=== PATIENT | male | born 1990 | race Caucasian/White ===

== ENCOUNTER → 2022-08-04 | Outpatient (REF) | payer OTHER ==
[2022-08-04 12:43] LABS: SEMEN APPEARANCE OPAQUE (OPAQUE); SEMEN VISCOSITY LIQUID (LIQUID); SEMEN pH 8.5 (7.0-8.0); WBC CONCENTRATION >1 M/ml (<=1 M/ml)
[2022-08-04 12:44] LABS: SPERM CONCENTRATION 4.7 M/ml (>=15.0)
== END ==
LOC: M SMT 12:23
PROVIDERS: ATTEND Physician Assistant
DX: N46.9 Male infertility, unspecified (principal); N32.81 Overactive bladder; N52.9 Male erectile dysfunction, unspecified; F17.290 Nicotine dependence, other tobacco product, uncomplicated
CPT/HCPCS: 51798; 89320; G0463

== ENCOUNTER 2022-09-25 12:22 | Emergency (ER) | payer OTHER ==
[~2022-09-25] VITALS: Ht 172.7 cm; Wt 94.7 kg
[2022-09-25] MEDS ORDERED: LIDOCAINE 5% (LIDODERM) PATCH TD ONE (13:05)
[2022-09-25] MEDS ORDERED: diazePAM 5MG TABLET PO ONE (13:05)
[2022-09-25] MEDS ORDERED: KETOROLAC 30 MG/ML 1ML VIAL IM ONE (13:05)
[2022-09-25] MEDS ORDERED: UNRESOLVED CLARIFICATION ENTRY XX STA (13:18)
[2022-09-25 13:22] VITALS: BP 133/82
[2022-09-25] MEDS ORDERED: CYCL-707 PO (15:39)
[2022-09-25] MEDS ORDERED: KETO10TAB PO (15:39)
[2022-09-25] MEDS ORDERED: LIDO5DIS41 TD (15:39)
== END 2022-09-25 15:47 | disposition home or self-care (01) ==
LOC: M ED 12:22
DX: S39.012A Strain of muscle, fascia and tendon of lower back, initial encounter (principal); F17.200 Nicotine dependence, unspecified, uncomplicated; Z79.899 Other long term (current) drug therapy
CPT/HCPCS: 72148; 96372; 99283; J1885

== ENCOUNTER 2023-05-07 13:10 | Emergency (ER) | payer OTHER ==
[~2023-05-07] VITALS: Ht 172.7 cm; Wt 95.5 kg
[~2023-05-07 13:10] MED LIST: CYCL-707 PO; KETO10TAB PO; LIDO5DIS41 TD
[2023-05-07] MEDS ORDERED: OXYB5TAB11 PO (13:29)
[2023-05-07] MEDS ORDERED: HYDR-3363 (13:29)
[2023-05-07] MEDS ORDERED: SERT50TA29 (13:29)
[2023-05-07] MEDS ORDERED: SILD25TA5 (13:31)
[2023-05-07 17:47] LABS: BASO % 0.6 % (0.0-1.0); EOS # 0.1 10^3/uL (0.0-0.5); HEMATOCRIT 46.6 % (42.0-52.0); HEMOGLOBIN 15.8 g/dl (13.5-17.5); LYMPH # 1.8 10^3/uL (1.5-5.0); LYMPH % 26.9 % (24.0-44.0); MEAN CORPUSCULAR HEMOGLOBIN 32.4 pg (27.0-33.0); MEAN CORPUSCULAR HGB CONC 33.9 g/dl (32.0-36.5); MEAN CORPUSCULAR VOLUME 95.7 fl (80.0-96.0); MONO # 0.5 10^3/uL (0.0-0.8); MONO % 7.6 % (2.0-8.0); NEUTROPHILS # 4.1 10^3/uL (1.5-8.5); NEUTROPHILS % 62.7 % (36.0-66.0); PLATELET COUNT, AUTOMATED 315 10^3/uL (150-450); RED BLOOD COUNT 4.87 10^6/uL (4.30-6.10); WHITE BLOOD COUNT 6.6 10^3/uL (4.0-10.0)
[2023-05-07] MEDS ORDERED: KETOROLAC 30 MG/ML 1ML VIAL IV ONE (17:55)
[2023-05-07] MEDS ORDERED: ONDANSETRON 4MG 2ML VIAL IV ONE (17:55)
[2023-05-07] MEDS ORDERED: ISOVUE-370 76% 100ML VIAL As Ordered ONE (17:59)
[2023-05-07 18:27] LABS: BILIRUBIN,DIRECT 0.1 MG/DL (<0.4); BILIRUBIN,TOTAL 0.5 MG/DL (0.3-1.2); TOTAL PROTEIN 7.2 G/DL (5.7-8.2)
[2023-05-07] MEDS ORDERED: BACITRACIN OINTMENT 30GM TUBE TOP ONE (19:05)
[2023-05-07] MEDS ORDERED: PYRI1TAB5 PO (19:26)
[2023-05-07 19:41] VITALS: BP 145/72; TEMP 98.5; O2SAT 97
[2023-05-08 00:25] LABS: CHLAMYDIA DNA AMPLIFICATION NEGATIVE (NEGATIVE); GC DNA AMPLIFICATION NEGATIVE (NEGATIVE)
== END 2023-05-07 19:41 | disposition home or self-care (01) ==
LOC: M ED 13:10
DX: R35.0 Frequency of micturition (principal); N32.81 Overactive bladder; F10.10 Alcohol abuse, uncomplicated; Z79.811 Long term (current) use of aromatase inhibitors; Z79.52 Long term (current) use of systemic steroids; Z79.899 Other long term (current) drug therapy
CPT/HCPCS: 74177; 80047; 80076; 81001; 83690; 85025; 87086; 87661; 87810; 87850; 96374; 96375; 99284; J1885; J2405; Q9967

== ENCOUNTER 2023-05-26 05:40 | Emergency (ER) | payer OTHER ==
[~2023-05-26] VITALS: Ht 172.7 cm; Wt 80.0 kg
[~2023-05-26 05:40] MED LIST changes: +HYDR-3363; +OXYB5TAB11 PO; +PYRI1TAB5 PO; +SERT50TA29; +SILD25TA5
[2023-05-26 06:06] VITALS: TEMP 97.6
[2023-05-26] MEDS ORDERED: NS 1,000 ML IV ONE (06:15)
[2023-05-26 06:48] LABS: BASO % 0.5 % (0.0-1.0); EOS # 0.1 10^3/uL (0.0-0.5); EOS % 2.2 % (0.0-3.0); HEMATOCRIT 49.1 % (42.0-52.0); HEMOGLOBIN 16.8 g/dl (13.5-17.5); LYMPH # 1.8 10^3/uL (1.5-5.0); LYMPH % 30.2 % (24.0-44.0); MEAN CORPUSCULAR HEMOGLOBIN 32.2 pg (27.0-33.0); MEAN CORPUSCULAR HGB CONC 34.2 g/dl (32.0-36.5); MEAN CORPUSCULAR VOLUME 94.2 fl (80.0-96.0); MONO # 0.3 10^3/uL (0.0-0.8); MONO % 5.2 % (2.0-8.0); NEUTROPHILS # 3.6 10^3/uL (1.5-8.5); NEUTROPHILS % 61.4 % (36.0-66.0); PLATELET COUNT, AUTOMATED 335 10^3/uL (150-450); RED BLOOD COUNT 5.21 10^6/uL (4.30-6.10); WHITE BLOOD COUNT 5.8 10^3/uL (4.0-10.0)
[2023-05-26 07:15] LABS: SALICYLATE LEVEL < 3.0 MG/DL (<30)
[2023-05-26 07:28] LABS: RSV AMPLIFICATION NEGATIVE (NEGATIVE)
[2023-05-26 07:38] LABS: ALBUMIN 3.4 G/DL (3.2-5.2); ALKALINE PHOSPHATASE 42 U/L (46-116); ALT/SGPT 32 U/L (7.0-40); AST/SGOT 38 U/L (<34); BILIRUBIN,DIRECT < 0.1 MG/DL (<0.4); BILIRUBIN,TOTAL 0.2 MG/DL (0.3-1.2); BLOOD UREA NITROGEN 7 MG/DL (9-23); CALCIUM LEVEL 6.6 MG/DL (8.5-10.1); CARBON DIOXIDE LEVEL 23 MMOL/L (20-31); CHLORIDE LEVEL 112 MMOL/L (98-107); CPK CREATINE PHOSPHOKINASE 126 U/L (46-171); CREATININE FOR GFR 0.68 MG/DL (0.70-1.30); ETHYL ALCOHOL (ETHANOL) 0.333 % (0.000-0.010); GLOMERULAR FILTRATION RATE > 60.0 (>60); GLUCOSE, FASTING 102 MG/DL (60-100); POTASSIUM SERUM 4.6 MMOL/L (3.5-5.1); SODIUM LEVEL 143 MMOL/L (136-145); THYROID STIMULATING HORMONE 0.658 uIU/ML (0.55-4.78); TOTAL PROTEIN 6.2 G/DL (5.7-8.2)
[2023-05-26 09:30] VITALS: BP 106/58
[2023-05-26] MEDS ORDERED: BOOSTRIX VACCINE (TETANUS/DIPHTH/ACEL. PERTUSSIS) 0.5ML SYR IM.IMMUN ONE (09:50)
[2023-05-26] MEDS ORDERED: CALCIUM GLUCONATE 1,000 MG in D5W MINI-BAG PLUS 100 ML IV ONE (10:05)
[2023-05-26 11:07] LABS: AMPHETAMINES LEVEL URINE NEGATIVE (NEGATIVE); BARBITURATES URINE NEGATIVE (NEGATIVE); BENZODIAZEPINES URINE NEGATIVE (NEGATIVE); CANNABINOIDS URINE NEGATIVE (NEGATIVE); COCAINE METABOLITE URINE NEGATIVE (NEGATIVE); METHADONE URINE NEGATIVE (NEGATIVE); OPIATES URINE NEGATIVE (NEGATIVE); PHENCYCLIDINE URINE NEGATIVE (NEGATIVE)
[2023-05-26 14:00] VITALS: O2SAT 98
== END 2023-05-26 15:14 | disposition home or self-care (01) ==
LOC: EDBD 05:40 → M ED 05:40
DX: U07.1 COVID-19 (principal); F10.129 Alcohol abuse with intoxication, unspecified; S00.81XA Abrasion of other part of head, initial encounter; Z79.811 Long term (current) use of aromatase inhibitors; Z79.899 Other long term (current) drug therapy; Z79.52 Long term (current) use of systemic steroids; Y92.009 Unspecified place in unspecified non-institutional (private) residence as the place of occurrence of the external cause; Y93.89 Activity, other specified; Y99.9 Unspecified external cause status
CPT/HCPCS: 70450; 72125; 80048; 80076; 80143; 80307; 82077; 82550; 84443; 85025; 87631; 90471; 90715; 93005; 93041; 94760; 96361; 96365; 96366; 99285; J0612

== ENCOUNTER → 2024-01-18 | Outpatient (CLI) | payer OTHER ==
[~2024-01-18] MED LIST changes: -OXYB5TAB11 PO; +OXYB5TAB14 PO
== END ==
LOC: M OUTALCOH 09:04
PROVIDERS: ATTEND Psychiatry & Neurology Psychiatry
DX: F10.10 Alcohol abuse, uncomplicated (principal); F17.200 Nicotine dependence, unspecified, uncomplicated

== ENCOUNTER 2024-02-07 16:00 | Outpatient (RCR) | payer OTHER | END 2024-02-09 | LOC: M OUTALCOH 16:00 | PROVIDERS: ATTEND Psychiatry & Neurology Psychiatry | DX: F10.10 Alcohol abuse, uncomplicated (principal); F17.200 Nicotine dependence, unspecified, uncomplicated ==

== ENCOUNTER 2024-03-06 16:00 | Outpatient (RCR) | payer OTHER | END 2024-03-10 | LOC: M OUTALCOH 16:00 | PROVIDERS: ATTEND Psychiatry & Neurology Psychiatry | DX: F10.10 Alcohol abuse, uncomplicated (principal); F17.200 Nicotine dependence, unspecified, uncomplicated ==

== ENCOUNTER 2024-04-07 16:00 | Outpatient (RCR) | payer OTHER | END 2024-04-10 | LOC: M OUTALCOH 16:00 | PROVIDERS: ATTEND Psychiatry & Neurology Psychiatry | DX: F10.10 Alcohol abuse, uncomplicated (principal); F17.200 Nicotine dependence, unspecified, uncomplicated ==

== ENCOUNTER 2024-04-17 16:00 | Outpatient (RCR) | payer OTHER | END 2024-05-10 | LOC: M OUTALCOH 16:00 | PROVIDERS: ATTEND Psychiatry & Neurology Psychiatry | DX: F10.10 Alcohol abuse, uncomplicated (principal); F17.200 Nicotine dependence, unspecified, uncomplicated ==